=== PATIENT | female | born 1995 | race Caucasian/White ===

== ENCOUNTER 2019-04-21 22:08 | Emergency (ER) | payer MEDICAID, OTHER ==
[~2019-04-21] VITALS: Ht 165.1 cm; Wt 82.0 kg
[~2019-04-21 22:08] MED LIST: SUCR1ORA2 PO
[2019-04-22] MEDS ORDERED: triamcinolone acetonide 40mg/ml inj IM ONE
[2019-04-22] MEDS ORDERED: ketorolac tromethamine 15mg/ml inj. IM ONE
[2019-04-22] MEDS ORDERED: IBUP-1985 PO (00:09)
[2019-04-22] MEDS ORDERED: PRED20TA PO (00:09)
[2019-04-22 00:31] VITALS: BP 122/63
== END 2019-04-22 00:30 | disposition home or self-care (01) ==
LOC: ER 22:09
DX: M54.42 Lumbago with sciatica, left side (principal); G89.29 Other chronic pain; F17.200 Nicotine dependence, unspecified, uncomplicated; F10.99 Alcohol use, unspecified with unspecified alcohol-induced disorder; Z88.0 Allergy status to penicillin; Z88.1 Allergy status to other antibiotic agents; Z79.899 Other long term (current) drug therapy; Y90.9 Presence of alcohol in blood, level not specified
CPT/HCPCS: 96372; 99283; J1885; J3301

== ENCOUNTER 2024-06-23 13:03 | Outpatient (CLI) | payer MEDICAID ==
[~2024-06-23 13:03] MED LIST changes: +IBUP-1985 PO
== END 2024-06-23 23:59 | disposition home or self-care (01) ==
LOC: LAB 13:03
PROVIDERS: ATTEND Family Medicine
DX: Z33.2 Encounter for elective termination of pregnancy (principal)
CPT/HCPCS: 36415; 84702

== ENCOUNTER 2024-06-26 11:11 | Outpatient (CLI) | payer MEDICAID | END 2024-06-26 23:59 | disposition home or self-care (01) | LOC: LAB 11:11 | PROVIDERS: ATTEND Family Medicine | DX: Z33.2 Encounter for elective termination of pregnancy (principal) | CPT/HCPCS: 36415; 84702 ==